=== PATIENT | male | born 1935 | race Caucasian/White ===

== ENCOUNTER 2020-01-26 18:45 | Observation (INO) ==
[2020-01-26] MEDS ORDERED: cefTRIAXone 1,000 MG in Water for inj. (sterile) 10 ML IVP ONE (18:57)
[2020-01-26] MEDS ORDERED: Azithromycin 500 MG in 0.9 % Sodium Chloride 250 ML IVPB ONE (18:57)
[2020-01-26] MEDS ORDERED: Acetaminophen 325 MG TABLET PO ONE (18:57)
[2020-01-26 19:46] LABS: Basophils # 0.1 K/mcL (0.0-0.2); Eosinophils # 0.1 K/mcL (0.0-0.6); Eosinophils % 1.1 %; Hematocrit 54.3 % (37.5-50.1); Immature Granulocytes % 0.3 % (0-4); Lymphocytes # 1.8 K/mcL (0.6-4.6); Lymphocytes % 22.2 %; Mean Corpuscular HGB Conc 33.1 g/dL (31.6-35.5); Mean Corpuscular Hemoglobin 31.6 pg (28.0-33.3); Mean Corpuscular Volume 95.3 fL (83.0-100.0); Mean Platelet Volume 10.3 fL (9.4-12.4); Monocytes # 0.9 K/mcL (0.0-1.3); Monocytes % 10.8 %; Neutrophils # 5.1 K/mcL (1.6-8.9); Platelet Count 207 K/mcL (140-400); Red Cell Distribution Width 13.6 % (11.5-14.5); Segmented Neutrophils % 64.6 %
[2020-01-26 19:52] LABS: Prothrombin Time 11.1 Seconds (9.4-12.1)
[2020-01-26 19:53] LABS: Activated Partial Thrombo Time 31.6 Seconds (26.0-36.0)
[2020-01-26 20:09] LABS: Alanine Aminotransferase 25 Units/L (7-52); Albumin 4.2 g/dL (3.5-5.7); Albumin/Globulin Ratio 1.7 (1.1-2.2); Alkaline Phosphatase 65 Units/L (34-104); Aspartate Amino Transferase 21 Units/L (13-39); BUN/Creatinine Ratio 19 (6-26); Bilirubin,Direct 0.2 mg/dL (0.0-0.2); Bilirubin,Indirect 0.7 mg/dL (0.0-1.0); Bilirubin,Total 0.9 mg/dL (0.3-1.0); Blood Urea Nitrogen 20 mg/dL (8-23); C-Reactive Protein < 5 mg/L (Less than 10); Calcium 9.4 mg/dL (8.6-10.3); Carbon Dioxide 30 mEq/L (23-29); Chloride 102 mEq/L (98-107); Globulin 2.5 g/dL (2.4-3.5); Glucose 91 mg/dL (70-105); Lactate Dehydrogenase 121 Units/L (140-271); Magnesium 2.2 mg/dL (1.6-2.6); Osmolality,Calculated 292 (280-300); Phosphorous 2.3 mg/dL (2.7-4.5); Sodium 140 mEq/L (136-145); Total Protein 6.7 g/dL (6.4-8.9); Troponin I < 0.03 ng/mL (< 0.04); eGFR For African Americans > 60 (> 60); eGFR For Non-African Americans > 60 (> 60)
[2020-01-26 20:28] LABS: Ferritin 104 ng/mL (20-250)
[2020-01-26] MEDS ORDERED: Naloxone 0.4 MG/ML INJ IVP PRN (22:31)
[2020-01-26] MEDS ORDERED: *HR* Promethazine 25 MG/ML VIAL IVP PRN (22:31)
[2020-01-26] MEDS ORDERED: Acetaminophen 325 MG TABLET PO PRN (22:31)
[2020-01-26] MEDS ORDERED: Mag Hydrox/Al Hydrox/Simeth 30 ML UDC PO PRN (22:31)
[2020-01-26] MEDS ORDERED: Benzonatate 100 MG CAPSULE PO PRN (22:40)
[2020-01-26] MEDS ORDERED: Dextrose Gel 15 GM/37.5 ML TUBE PO PRN ×2 (22:42)
[2020-01-26] MEDS ORDERED: *HR* Dextrose 50 % in Water (Syg) 50 ML SYRINGE IVP PRN (22:42)
[2020-01-26] MEDS ORDERED: D5% in Water 1,000 ML IVC PRN (22:42)
[2020-01-27] MEDS: Ipratropium 1 PUFF INHALER IH SCH ×5 (00:34→22:12)
[2020-01-27] MEDS ORDERED: *HR* LORazepam 0.5 MG TABLET PO PRN (01:53)
[2020-01-27] MEDS ORDERED: 0.9 % Sodium Chloride 1,000 ML IVC SCH (02:00)
[2020-01-27] MEDS: Insulin LISPRO 300 UNITS/3 ML VIAL SQ SCH ×5 (02:31→19:30)
[2020-01-27 04:56] LABS: Basophils # 0.1 K/mcL (0.0-0.2); Basophils % 0.8 %; Eosinophils # 0.1 K/mcL (0.0-0.6); Eosinophils % 1.4 %; Hematocrit 49.7 % (37.5-50.1); Hemoglobin 17.1 g/dL (12.9-16.9); Immature Granulocytes % 0.1 % (0-4); Lymphocytes # 1.8 K/mcL (0.6-4.6); Mean Corpuscular HGB Conc 34.4 g/dL (31.6-35.5); Mean Corpuscular Hemoglobin 32.8 pg (28.0-33.3); Mean Corpuscular Volume 95.2 fL (83.0-100.0); Mean Platelet Volume 10.6 fL (9.4-12.4); Monocytes # 0.8 K/mcL (0.0-1.3); Monocytes % 10.4 %; Neutrophils # 4.8 K/mcL (1.6-8.9); Platelet Count 168 K/mcL (140-400); Red Blood Count 5.22 M/mcL (4.19-5.50); Red Cell Distribution Width 13.5 % (11.5-14.5); Segmented Neutrophils % 63.3 %; White Blood Count 7.6 K/mcL (4.3-11.1)
[2020-01-27 05:14] LABS: BUN/Creatinine Ratio 19 (6-26); Blood Urea Nitrogen 17 mg/dL (8-23); Calcium 8.7 mg/dL (8.6-10.3); Carbon Dioxide 25 mEq/L (23-29); Chloride 105 mEq/L (98-107); Glucose 111 mg/dL (70-105); Magnesium 2.1 mg/dL (1.6-2.6); Osmolality,Calculated 292 (280-300); Phosphorous 2.7 mg/dL (2.7-4.5); Potassium 3.4 mEq/L (3.5-5.1); Sodium 140 mEq/L (136-145); eGFR For African Americans > 60 (> 60); eGFR For Non-African Americans > 60 (> 60)
[2020-01-27] MEDS: *HR* Heparin 5,000 UNIT/ML VIAL SQ SCH ×2 (07:03→17:10)
[2020-01-27] MEDS: Doxycycline 100 MG CAPSULE PO SCH ×2 (08:07→19:32)
[2020-01-27 09:35] LABS: Adenovirus Not Detected (Not Detect); Bordetella Pertussis Not Detected (Not Detect); Chlamydophila pneumoniae Not Detected (Not Detect); Coronavirus 229E Not Detected (Not Detect); Coronavirus HKU1 Not Detected (Not Detect); Coronavirus NL63 Not Detected (Not Detect); Coronavirus OC43 Not Detected (Not Detect); Human Metapneumovirus Not Detected (Not Detect); Human Rhinovirus/Enterovirus Not Detected (Not Detect); Influenza A Subtype 2009 H1 Not Detected (Not Detect); Influenza B Not Detected (Not Detect); Mycoplasma pneumoniae Not Detected (Not Detect); Parainfluenza Virus 1 Not Detected (Not Detect); Parainfluenza Virus 2 Not Detected (Not Detect); Parainfluenza Virus 3 Not Detected (Not Detect); Parainfluenza Virus 4 Not Detected (Not Detect); Respiratory Syncytial Virus Not Detected (Not Detect)
[2020-01-27] MEDS: NIFEdipine XL (24 HR) 30 MG TAB.ER.24 PO SCH (19:52)
[2020-01-27] MEDS ORDERED: Ipratropium/Albuterol Neb 3 ML ONE (22:06)
[2020-01-27] MEDS ORDERED: MethylPREDNISolone 40 MG/ML VIAL IVP ONE (22:15)
[2020-01-28] MEDS: Ipratropium/Albuterol Neb 3 ML IH SCH ×2 (04:00→10:30)
[2020-01-28] MEDS: *HR* Heparin 5,000 UNIT/ML VIAL SQ SCH (05:48)
[2020-01-28] MEDS: Doxycycline 100 MG CAPSULE PO SCH (08:30)
[2020-01-28] MEDS: NIFEdipine XL (24 HR) 30 MG TAB.ER.24 PO SCH (08:30)
[2020-01-28] MEDS: Insulin LISPRO 300 UNITS/3 ML VIAL SQ SCH (08:30)
[2020-01-28 08:31] LABS: Estimated Average Glucose 128 mg/dl
[2020-01-28] MEDS ORDERED: MethylPREDNISolone 40 MG/ML VIAL IVP SCH (10:00)
[2020-01-28 10:40] VITALS: BP 136/78
[2020-01-28] MEDS ORDERED: Ipratropium/Albuterol Neb 3 ML IH SCH (22:04)
== END 2020-01-28 13:05 | disposition home or self-care (01) ==
LOC: EMEROOARM 18:45 → 2NENU 18:45 → SUATTDRO 21:58 → 2NENU 23:10 → 3BNU 01-27 20:44
PROVIDERS: ADMIT Family Medicine; ATTEND Internal Medicine

== ENCOUNTER 2020-03-02 19:43 | Observation (INO) ==
[2020-03-02] MEDS ORDERED: Azithromycin 500 MG in 0.9 % Sodium Chloride 250 ML IVPB ONE (20:01)
[2020-03-02] MEDS ORDERED: Ipratropium/Albuterol Neb 3 ML IH ONE (20:01)
[2020-03-02] MEDS ORDERED: methylPREDNISolone 125 MG/2 ML VIAL IVP ONE (20:02)
[2020-03-02] MEDS ORDERED: 0.9 % Sodium Chloride 1,000 ML IVC ONE ×2 (20:02→21:37)
[2020-03-02 20:25] LABS: Basophils # 0.1 K/mcL (0.0-0.2); Eosinophils # 0.2 K/mcL (0.0-0.6); Eosinophils % 2.2 %; Hematocrit 54.2 % (37.5-50.1); Hemoglobin 18.1 g/dL (12.9-16.9); Immature Granulocytes % 0.5 % (0-4); Lymphocytes # 2.3 K/mcL (0.6-4.6); Lymphocytes % 28.1 %; Mean Corpuscular HGB Conc 33.4 g/dL (31.6-35.5); Mean Corpuscular Hemoglobin 31.3 pg (28.0-33.3); Mean Corpuscular Volume 93.8 fL (83.0-100.0); Mean Platelet Volume 10.1 fL (9.4-12.4); Monocytes # 0.9 K/mcL (0.0-1.3); Monocytes % 10.6 %; Neutrophils # 4.6 K/mcL (1.6-8.9); Platelet Count 306 K/mcL (140-400); Red Blood Count 5.78 M/mcL (4.19-5.50); Red Cell Distribution Width 13.2 % (11.5-14.5); Segmented Neutrophils % 57.6 %
[2020-03-02] MEDS ORDERED: Ipratropium 1 PUFF INHALER IH PRN (20:28)
[2020-03-02 20:41] LABS: Prothrombin Time 11.4 Seconds (9.4-12.1)
[2020-03-02 20:42] LABS: Activated Partial Thrombo Time 32.8 Seconds (26.0-36.0)
[2020-03-02 20:58] LABS: Alanine Aminotransferase 25 Units/L (7-52); Albumin 4.5 g/dL (3.5-5.7); Albumin/Globulin Ratio 1.5 (1.1-2.2); Alkaline Phosphatase 77 Units/L (34-104); Aspartate Amino Transferase 23 Units/L (13-39); BUN/Creatinine Ratio 25 (6-26); Bilirubin,Direct 0.2 mg/dL (0.0-0.2); Bilirubin,Indirect 0.5 mg/dL (0.0-1.0); Bilirubin,Total 0.7 mg/dL (0.3-1.0); Blood Urea Nitrogen 29 mg/dL (8-23); C-Reactive Protein < 5 mg/L (Less than 10); Carbon Dioxide 28 mEq/L (23-29); Chloride 102 mEq/L (98-107); Globulin 3.1 g/dL (2.4-3.5); Glucose 150 mg/dL (70-105); Lactate Dehydrogenase 144 Units/L (140-271); Magnesium 2.1 mg/dL (1.6-2.6); Osmolality,Calculated 293 (280-300); Phosphorous 2.8 mg/dL (2.7-4.5); Potassium 3.4 mEq/L (3.5-5.1); Sodium 137 mEq/L (136-145); Total Protein 7.6 g/dL (6.4-8.9); Troponin I < 0.03 ng/mL (< 0.04); eGFR For African Americans > 60 (> 60); eGFR For Non-African Americans 59 (> 60)
[2020-03-02 21:16] LABS: Ferritin 210 ng/mL (20-250)
[2020-03-02 22:55] LABS: Bilirubin,Urine Negative (Negative); Blood,Urine Negative (Negative); Clarity,Urine Clear (Clear); Color,Urine Yellow (Yellow); Glucose,Urine (UA) Normal (Normal); Ketones,Urine Negative (Negative); Leukocyte Esterase,Urine Negative (Negative); Nitrite,Urine Negative (Negative); Protein,Urine Negative (Neg-Trace); Specific Gravity,Urine 1.017 (1.010-1.025); Urobilinogen,Urine Normal (Normal)
[2020-03-02] MEDS: Ipratropium 1 PUFF INHALER IH SCH (23:57)
[2020-03-03] MEDS ORDERED: D5% in Water 1,000 ML IVC PRN (01:10)
[2020-03-03] MEDS ORDERED: *HR* Dextrose 50 % in Water (Syg) 50 ML SYRINGE IVP PRN (01:10)
[2020-03-03] MEDS ORDERED: Dextrose Gel 15 GM/37.5 ML TUBE PO PRN ×2 (01:10)
[2020-03-03] MEDS: Insulin LISPRO 300 UNITS/3 ML VIAL SQ SCH ×4 (01:29→16:44)
[2020-03-03] MEDS: *HR* Acetylcysteine 20% 600 MG/3 ML ORAL SYRINGE PO SCH ×2 (01:52→07:36)
[2020-03-03] MEDS: Ipratropium 1 PUFF INHALER IH SCH ×5 (03:19→20:45)
[2020-03-03] MEDS: *HR* Heparin 5,000 UNIT/ML VIAL SQ SCH ×2 (05:17→16:32)
[2020-03-03 05:40] LABS: Basophils % 0.5 %; Hematocrit 49.7 % (37.5-50.1); Immature Granulocytes % 0.5 % (0-4); Lymphocytes # 0.7 K/mcL (0.6-4.6); Lymphocytes % 12.5 %; Mean Corpuscular HGB Conc 32.8 g/dL (31.6-35.5); Mean Corpuscular Hemoglobin 30.9 pg (28.0-33.3); Mean Corpuscular Volume 94.1 fL (83.0-100.0); Monocytes # 0.1 K/mcL (0.0-1.3); Monocytes % 1.2 %; Neutrophils # 4.8 K/mcL (1.6-8.9); Platelet Count 270 K/mcL (140-400); Red Blood Count 5.28 M/mcL (4.19-5.50); Red Cell Distribution Width 13.1 % (11.5-14.5); Segmented Neutrophils % 85.3 %; White Blood Count 5.6 K/mcL (4.3-11.1)
[2020-03-03 05:41] LABS: Hemoglobin 16.3 g/dL (12.9-16.9)
[2020-03-03 05:59] LABS: Alanine Aminotransferase 21 Units/L (7-52); Albumin 4.1 g/dL (3.5-5.7); Albumin/Globulin Ratio 1.6 (1.1-2.2); Alkaline Phosphatase 65 Units/L (34-104); Aspartate Amino Transferase 19 Units/L (13-39); BUN/Creatinine Ratio 24 (6-26); Bilirubin,Total 0.8 mg/dL (0.3-1.0); Blood Urea Nitrogen 24 mg/dL (8-23); Calcium 8.8 mg/dL (8.6-10.3); Carbon Dioxide 26 mEq/L (23-29); Chloride 105 mEq/L (98-107); Globulin 2.6 g/dL (2.4-3.5); Glucose 188 mg/dL (70-105); Osmolality,Calculated 295 (280-300); Sodium 138 mEq/L (136-145); Total Protein 6.7 g/dL (6.4-8.9); eGFR For African Americans > 60 (> 60); eGFR For Non-African Americans > 60 (> 60)
[2020-03-03] MEDS: Azithromycin 500 MG in 0.9 % Sodium Chloride 250 ML IVPB SCH (07:36)
[2020-03-03] MEDS: MethylPREDNISolone 40 MG/ML VIAL IVP SCH ×3 (09:23→23:54)
[2020-03-03] MEDS ORDERED: Isovue-370 500 ML BOTTLE IVP ONE (11:04)
[2020-03-03] MEDS: Budesonide/Formoterol 160/4.5 1 PUFF INH IH SCH ×2 (11:09→20:45)
[2020-03-03] MEDS: Loratadine 10 MG TABLET PO SCH (11:29)
[2020-03-03] MEDS: Ipratropium/Albuterol Neb 3 ML IH SCH ×2 (21:57→23:33)
[2020-03-03] MEDS: NIFEdipine XL (24 HR) 30 MG TAB.ER.24 PO SCH (23:54)
[2020-03-04] MEDS: Ipratropium/Albuterol Neb 3 ML IH SCH ×3 (03:17→11:17)
[2020-03-04] MEDS: *HR* Heparin 5,000 UNIT/ML VIAL SQ SCH (05:48)
[2020-03-04] MEDS: Insulin LISPRO 300 UNITS/3 ML VIAL SQ SCH (08:58)
[2020-03-04] MEDS ORDERED: Aspirin Enteric Coated 325 MG Tablet PO SCH (09:00)
[2020-03-04] MEDS: Azithromycin 500 MG in 0.9 % Sodium Chloride 250 ML IVPB SCH (09:03)
[2020-03-04] MEDS: MethylPREDNISolone 40 MG/ML VIAL IVP SCH (09:03)
[2020-03-04] MEDS: NIFEdipine XL (24 HR) 30 MG TAB.ER.24 PO SCH (09:03)
[2020-03-04] MEDS: Loratadine 10 MG TABLET PO SCH (09:03)
[2020-03-04 10:30] VITALS: BP 100/59
== END 2020-03-04 13:59 | disposition home or self-care (01) ==
LOC: 2NENU 19:43 → EMEROOARM 19:43 → 2NENU 22:25 → 3BNU 03-03 20:09
PROVIDERS: ADMIT Internal Medicine; ATTEND Internal Medicine

== ENCOUNTER 2021-03-09 09:20 | Observation (INO) ==
[2021-03-09] MEDS ORDERED: Acetaminophen 325 MG TABLET PO ONE (09:22)
[2021-03-09] MEDS ORDERED: Ondansetron 4 MG/2 ML VIAL IVP ONE (09:22)
[2021-03-09] MEDS ORDERED: 0.9 % Sodium Chloride 500 ML IVC ONE (09:30)
[2021-03-09] MEDS ORDERED: 0.9 % Sodium Chloride 500 ML ONE (09:33)
[2021-03-09 09:56] LABS: Basophils # 0.1 K/mcL (0.0-0.2); Basophils % 1.1 %; Eosinophils # 0.1 K/mcL (0.0-0.6); Eosinophils % 1.2 %; Hematocrit 46.9 % (37.5-50.1); Immature Granulocytes % 0.3 % (0-4); Lymphocytes # 0.7 K/mcL (0.6-4.6); Lymphocytes % 7.7 %; Mean Corpuscular HGB Conc 34.1 g/dL (31.6-35.5); Mean Corpuscular Hemoglobin 31.2 pg (28.0-33.3); Mean Corpuscular Volume 91.4 fL (83.0-100.0); Mean Platelet Volume 10.2 fL (9.4-12.4); Monocytes # 0.9 K/mcL (0.0-1.3); Monocytes % 9.4 %; Neutrophils # 7.3 K/mcL (1.6-8.9); Platelet Count 168 K/mcL (140-400); Red Blood Count 5.13 M/mcL (4.19-5.50); Segmented Neutrophils % 80.3 %; White Blood Count 9.1 K/mcL (4.3-11.1)
[2021-03-09] MEDS ORDERED: cefTRIAXone 1,000 MG in 0.9 % Sodium Chloride Mini Bag 100 ML IVPB ONE (10:11)
[2021-03-09] MEDS ORDERED: Azithromycin 500 MG in 0.9 % Sodium Chloride 250 ML IVPB ONE (10:11)
[2021-03-09 10:18] LABS: Alanine Aminotransferase 31 Units/L (7-52); Albumin 3.7 g/dL (3.5-5.7); Albumin/Globulin Ratio 1.4 (1.1-2.2); Alkaline Phosphatase 59 Units/L (34-104); Aspartate Amino Transferase 25 Units/L (13-39); BUN/Creatinine Ratio 16 (6-26); Blood Urea Nitrogen 19 mg/dL (8-23); Calcium 8.7 mg/dL (8.6-10.3); Carbon Dioxide 22 mEq/L (23-29); Chloride 98 mEq/L (98-107); Globulin 2.6 g/dL (2.4-3.5); Glucose 142 mg/dL (70-105); Osmolality,Calculated 271 (280-300); Potassium 3.9 mEq/L (3.5-5.1); Sodium 128 mEq/L (136-145); Total Protein 6.3 g/dL (6.4-8.9); Troponin I 0.03 ng/mL (< 0.04); eGFR For African Americans > 60 (> 60); eGFR For Non-African Americans 57 (> 60)
[2021-03-09] MEDS ORDERED: methylPREDNISolone 125 MG/2 ML VIAL IVP ONE (10:35)
[2021-03-09] MEDS ORDERED: Ipratropium/Albuterol Neb 3 ML IH ONE (10:35)
[2021-03-09] MEDS ORDERED: cefTRIAXone 1,000 MG in Water for inj. (sterile) 10 ML IVP ONE (10:37)
[2021-03-09 10:59] LABS: Adenovirus Not Detected (Not Detect); Coronavirus 229E Not Detected (Not Detect); Coronavirus HKU1 Not Detected (Not Detect); Coronavirus NL63 Not Detected (Not Detect); Coronavirus OC43 Not Detected (Not Detect); Human Metapneumovirus Not Detected (Not Detect); Human Rhinovirus/Enterovirus Not Detected (Not Detect); Influenza A Subtype 2009 H1 Not Detected (Not Detect); Influenza B Not Detected (Not Detect); Parainfluenza Virus 1 Not Detected (Not Detect); Parainfluenza Virus 2 Not Detected (Not Detect); SARS-CoV-2 Not Detected (Not Detect)
[2021-03-09 11:00] LABS: Bordetella Pertussis Not Detected (Not Detect); Chlamydophila pneumoniae Not Detected (Not Detect); Mycoplasma pneumoniae Not Detected (Not Detect); Parainfluenza Virus 3 Not Detected (Not Detect); Parainfluenza Virus 4 Not Detected (Not Detect); Respiratory Syncytial Virus Not Detected (Not Detect)
[2021-03-09] MEDS ORDERED: Naloxone 0.4 MG/ML INJ IVP PRN (11:06)
[2021-03-09] MEDS: *HR* Heparin 5,000 UNIT/ML VIAL SQ SCH ×2 (14:52→20:00)
[2021-03-09 16:32] LABS: Bilirubin,Urine Negative (Negative); Blood,Urine Negative (Negative); Clarity,Urine Clear (Clear); Color,Urine Light-Yellow (Yellow); Glucose,Urine (UA) Normal (Normal); Ketones,Urine 10 mg/dL (Negative); Leukocyte Esterase,Urine Negative (Negative); Nitrite,Urine Negative (Negative); Protein,Urine Negative (Neg-Trace); Specific Gravity,Urine 1.009 (1.010-1.025); Urobilinogen,Urine Normal (Normal)
[2021-03-09] MEDS ORDERED: 0.9 % Sodium Chloride 1,000 ML IVC SCH (18:00)
[2021-03-09] MEDS: Artificial Tears SOLN 15 ML BOTTLE BOTH EYES SCH (21:17)
[2021-03-10] MEDS: *HR* Heparin 5,000 UNIT/ML VIAL SQ SCH ×3 (04:08→21:40)
[2021-03-10 05:14] LABS: Basophils % 0.2 %; Hematocrit 48.3 % (37.5-50.1); Hemoglobin 16.5 g/dL (12.9-16.9); Immature Granulocytes % 0.3 % (0-4); Lymphocytes # 0.7 K/mcL (0.6-4.6); Lymphocytes % 11.2 %; Mean Corpuscular HGB Conc 34.2 g/dL (31.6-35.5); Mean Corpuscular Hemoglobin 31.3 pg (28.0-33.3); Mean Corpuscular Volume 91.7 fL (83.0-100.0); Mean Platelet Volume 10.3 fL (9.4-12.4); Monocytes # 0.2 K/mcL (0.0-1.3); Monocytes % 3.5 %; Neutrophils # 5.3 K/mcL (1.6-8.9); Platelet Count 166 K/mcL (140-400); Red Blood Count 5.27 M/mcL (4.19-5.50); Red Cell Distribution Width 13.2 % (11.5-14.5); Segmented Neutrophils % 84.8 %; White Blood Count 6.3 K/mcL (4.3-11.1)
[2021-03-10 05:35] LABS: BUN/Creatinine Ratio 18 (6-26); Blood Urea Nitrogen 20 mg/dL (8-23); Calcium 8.7 mg/dL (8.6-10.3); Carbon Dioxide 22 mEq/L (23-29); Chloride 107 mEq/L (98-107); Glucose 162 mg/dL (70-105); Osmolality,Calculated 286 (280-300); Potassium 4.7 mEq/L (3.5-5.1); Sodium 135 mEq/L (136-145); eGFR For African Americans > 60 (> 60); eGFR For Non-African Americans > 60 (> 60)
[2021-03-10 05:42] LABS: Estimated Average Glucose 128 mg/dl; Hemoglobin A1C 6.1 %
[2021-03-10] MEDS: Artificial Tears SOLN 15 ML BOTTLE BOTH EYES SCH ×4 (08:22→21:39)
[2021-03-10] MEDS: Pyridoxine (B-6) 50 MG TABLET PO SCH (11:37)
[2021-03-10] MEDS: Cholecalciferol (D-3) 1,000 UNIT (25MCG) TABLET PO SCH (11:37)
[2021-03-10] MEDS: predniSONE 20 MG TABLET PO SCH (11:37)
[2021-03-10] MEDS: Azithromycin 500 MG in 0.9 % Sodium Chloride 250 ML IVPB SCH (11:38)
[2021-03-10] MEDS: amLODIPine 5 MG TABLET PO SCH (11:38)
[2021-03-10] MEDS: cefTRIAXone 2,000 MG in Water for inj. (sterile) 20 ML IVP SCH (11:38)
[2021-03-10] MEDS ORDERED: Ipratropium/Albuterol Neb 3 ML IH PRN (13:56)
[2021-03-11] MEDS: *HR* Heparin 5,000 UNIT/ML VIAL SQ SCH ×2 (05:27→05:42)
[2021-03-11 06:10] LABS: Basophils % 0.3 %; Eosinophils % 0.1 %; Hematocrit 47.2 % (37.5-50.1); Hemoglobin 15.6 g/dL (12.9-16.9); Immature Granulocytes % 0.6 % (0-4); Lymphocytes # 1.1 K/mcL (0.6-4.6); Lymphocytes % 8.8 %; Mean Corpuscular HGB Conc 33.1 g/dL (31.6-35.5); Mean Corpuscular Hemoglobin 30.8 pg (28.0-33.3); Mean Corpuscular Volume 93.1 fL (83.0-100.0); Mean Platelet Volume 10.4 fL (9.4-12.4); Monocytes # 0.6 K/mcL (0.0-1.3); Monocytes % 4.5 %; Neutrophils # 10.9 K/mcL (1.6-8.9); Platelet Count 222 K/mcL (140-400); Red Blood Count 5.07 M/mcL (4.19-5.50); Red Cell Distribution Width 13.4 % (11.5-14.5); Segmented Neutrophils % 85.7 %
[2021-03-11 06:15] LABS: White Blood Count 12.7 K/mcL (4.3-11.1)
[2021-03-11 06:40] LABS: BUN/Creatinine Ratio 24 (6-26); Blood Urea Nitrogen 25 mg/dL (8-23); Calcium 8.8 mg/dL (8.6-10.3); Carbon Dioxide 25 mEq/L (23-29); Chloride 108 mEq/L (98-107); Glucose 138 mg/dL (70-105); Osmolality,Calculated 295 (280-300); Potassium 4.6 mEq/L (3.5-5.1); Sodium 139 mEq/L (136-145); eGFR For African Americans > 60 (> 60); eGFR For Non-African Americans > 60 (> 60)
[2021-03-11] MEDS: cefTRIAXone 2,000 MG in Water for inj. (sterile) 20 ML IVP SCH (10:54)
[2021-03-11] MEDS: Azithromycin 500 MG in 0.9 % Sodium Chloride 250 ML IVPB SCH (10:55)
[2021-03-11] MEDS: predniSONE 20 MG TABLET PO SCH (10:56)
[2021-03-11] MEDS: amLODIPine 5 MG TABLET PO SCH (10:56)
[2021-03-11] MEDS: Pyridoxine (B-6) 50 MG TABLET PO SCH (10:56)
[2021-03-11] MEDS: Cholecalciferol (D-3) 1,000 UNIT (25MCG) TABLET PO SCH (10:56)
[2021-03-11] MEDS: Artificial Tears SOLN 15 ML BOTTLE BOTH EYES SCH (10:57)
[2021-03-11 12:29] VITALS: BP 147/79
== END 2021-03-11 13:16 | disposition home or self-care (01) ==
LOC: CDU 09:20 → EMEROOARM 09:20 → SUATTDRO 12:03 → CDU 12:32 → 3BNU 17:19
PROVIDERS: ADMIT Internal Medicine; ATTEND Internal Medicine

== ENCOUNTER 2021-06-30 10:27 | Inpatient (IN) ==
[2021-06-30 11:44] LABS: Basophils # 0.1 K/mcL (0.0-0.2); Basophils % 0.9 %; Eosinophils # 0.3 K/mcL (0.0-0.6); Eosinophils % 4.4 %; Hematocrit 51.8 % (37.5-50.1); Hemoglobin 17.4 g/dL (12.9-16.9); Immature Granulocytes % 0.1 % (0-4); Lymphocytes % 13.5 %; Mean Corpuscular HGB Conc 33.6 g/dL (31.6-35.5); Mean Corpuscular Hemoglobin 31.4 pg (28.0-33.3); Mean Corpuscular Volume 93.5 fL (83.0-100.0); Mean Platelet Volume 10.4 fL (9.4-12.4); Monocytes # 0.7 K/mcL (0.0-1.3); Monocytes % 8.8 %; Neutrophils # 5.5 K/mcL (1.6-8.9); Platelet Count 235 K/mcL (140-400); Red Blood Count 5.54 M/mcL (4.19-5.50); Red Cell Distribution Width 12.6 % (11.5-14.5); Segmented Neutrophils % 72.3 %; White Blood Count 7.7 K/mcL (4.3-11.1)
[2021-06-30 12:54] LABS: Acetaminophen < 10 mcg/mL (10-20); BUN/Creatinine Ratio 21 (6-26); Blood Urea Nitrogen 42 mg/dL (8-23); Calcium 9.4 mg/dL (8.6-10.3); Carbon Dioxide 25 mEq/L (23-29); Chloride 97 mEq/L (98-107); Ethanol < 10 mg/dL (Less than 10); Glucose 119 mg/dL (70-105); Osmolality,Calculated 292 (280-300); Salicylate < 2.5 mg/dL (15.0-30.0); Sodium 135 mEq/L (136-145); eGFR For African Americans 38 (> 60); eGFR For Non-African Americans 31 (> 60)
[2021-06-30 13:09] LABS: Troponin I 0.03 ng/mL (< 0.04)
[2021-06-30 15:51] LABS: Bacteria,Urine Few per hpf (None-Few); Bilirubin,Urine Negative (Negative); Blood,Urine Negative (Negative); Clarity,Urine Clear (Clear); Color,Urine Yellow (Yellow); Glucose,Urine (UA) Normal (Normal); Granular Casts,Urine Few per lpf (None Seen); Hyaline Casts,Urine Few per lpf (None Seen); Ketones,Urine 10 mg/dL (Negative); Leukocyte Esterase,Urine Trace (Negative); Mucus,Urine Few per lpf (None-Few); Nitrite,Urine Negative (Negative); PH,Urine 5.5 pH Units (5.0-8.0); Protein,Urine Trace mg/dL (Neg-Trace); RBC,Urine 0-3 per hpf (0-3); Renal Epithelial Cells,Urine Few per hpf (None-Few); Specific Gravity,Urine 1.018 (1.010-1.025); Transitional Epi Cells,Urine Few per hpf (None-Few); Urobilinogen,Urine Normal (Normal)
[2021-06-30 15:57] LABS: Amphetamine Screen,Urine Negative ng/mL (Cutoff=1000); Barbiturate Screen,Urine Negative ng/mL (Cutoff=200); Benzodiazepines Screen,Urine Negative ng/mL (Cutoff=200); Cannabinoid Screen,Urine Negative ng/mL (Cutoff = 50); Cocaine Screen,Urine Negative ng/mL (Cutoff= 300); Opiate Screen,Urine Negative ng/mL (Cutoff=300); Phencyclidine Screen,Urine Negative ng/mL (Cutoff=25)
[2021-06-30] MEDS ORDERED: Naloxone 0.4 MG/ML INJ IVP PRN (17:04)
[2021-06-30] MEDS: 0.9 % Sodium Chloride 1,000 ML IVC SCH (20:45)
[2021-07-01 05:34] LABS: Mean Corpuscular Hemoglobin 31.8 pg (28.0-33.3); Mean Corpuscular Volume 93.4 fL (83.0-100.0); Mean Platelet Volume 10.5 fL (9.4-12.4); Platelet Count 247 K/mcL (140-400); Red Blood Count 5.03 M/mcL (4.19-5.50); Red Cell Distribution Width 12.4 % (11.5-14.5); White Blood Count 8.4 K/mcL (4.3-11.1)
[2021-07-01 05:54] LABS: Calcium 8.8 mg/dL (8.6-10.3); Potassium 4.2 mEq/L (3.5-5.1)
[2021-07-01] MEDS: *HR* Enoxaparin 40 MG/0.4 ML SYRINGE SQ SCH (05:57)
[2021-07-01] MEDS ORDERED: HydrOXYzine 100 MG/2 ML VIAL IM ONE (07:34)
[2021-07-01] MEDS ORDERED: Ipratropium/Albuterol Neb 3 ML IH PRN (11:31)
[2021-07-01] MEDS: 0.9 % Sodium Chloride 1,000 ML IVC SCH (20:09)
[2021-07-02 04:30] LABS: Hematocrit 47.4 % (37.5-50.1); Hemoglobin 15.8 g/dL (12.9-16.9); Mean Corpuscular HGB Conc 33.3 g/dL (31.6-35.5); Mean Corpuscular Hemoglobin 31.3 pg (28.0-33.3); Mean Corpuscular Volume 93.9 fL (83.0-100.0); Mean Platelet Volume 10.3 fL (9.4-12.4); Platelet Count 261 K/mcL (140-400); Red Blood Count 5.05 M/mcL (4.19-5.50); Red Cell Distribution Width 12.4 % (11.5-14.5); White Blood Count 8.8 K/mcL (4.3-11.1)
[2021-07-02 04:53] LABS: Calcium 8.6 mg/dL (8.6-10.3); Potassium 4.1 mEq/L (3.5-5.1)
[2021-07-02] MEDS: *HR* Enoxaparin 40 MG/0.4 ML SYRINGE SQ SCH (05:27)
[2021-07-02] MEDS: Cholecalciferol (D-3) 1,000 UNIT (25MCG) TABLET PO SCH (08:40)
[2021-07-02] MEDS: amLODIPine 5 MG TABLET PO SCH (08:41)
[2021-07-02] MEDS: Pyridoxine (B-6) 50 MG TABLET PO SCH (08:41)
[2021-07-02] MEDS ORDERED: HydrOXYzine 100 MG/2 ML VIAL IM ONE (11:17)
[2021-07-02] MEDS: QUEtiapine Fumarate 25 MG TABLET PO SCH ×2 (11:26→20:30)
[2021-07-03 01:40] LABS: Hematocrit 45.2 % (37.5-50.1); Hemoglobin 15.2 g/dL (12.9-16.9); Mean Corpuscular HGB Conc 33.6 g/dL (31.6-35.5); Mean Corpuscular Hemoglobin 31.7 pg (28.0-33.3); Mean Corpuscular Volume 94.4 fL (83.0-100.0); Mean Platelet Volume 10.4 fL (9.4-12.4); Platelet Count 256 K/mcL (140-400); Red Blood Count 4.79 M/mcL (4.19-5.50); Red Cell Distribution Width 12.3 % (11.5-14.5); White Blood Count 9.8 K/mcL (4.3-11.1)
[2021-07-03 02:11] LABS: Calcium 8.5 mg/dL (8.6-10.3); Potassium 3.9 mEq/L (3.5-5.1)
[2021-07-03] MEDS: *HR* Enoxaparin 40 MG/0.4 ML SYRINGE SQ SCH (05:39)
[2021-07-03] MEDS: QUEtiapine Fumarate 25 MG TABLET PO SCH ×2 (08:47→21:42)
[2021-07-03] MEDS: Pyridoxine (B-6) 50 MG TABLET PO SCH (08:48)
[2021-07-03] MEDS: Cholecalciferol (D-3) 1,000 UNIT (25MCG) TABLET PO SCH (08:48)
[2021-07-03] MEDS: amLODIPine 5 MG TABLET PO SCH (08:51)
[2021-07-03] MEDS: GuaiFENesin/Dextromethorphan TABLET PO SCH ×2 (10:10→21:41)
[2021-07-03] MEDS: Loratadine 10 MG TABLET PO SCH (21:42)
[2021-07-04] MEDS: *HR* Enoxaparin 30 MG/0.3 ML SYRINGE SQ SCH (06:59)
[2021-07-04 07:17] LABS: Hematocrit 47.2 % (37.5-50.1); Hemoglobin 15.6 g/dL (12.9-16.9); Mean Corpuscular HGB Conc 33.1 g/dL (31.6-35.5); Mean Corpuscular Hemoglobin 31.3 pg (28.0-33.3); Mean Corpuscular Volume 94.6 fL (83.0-100.0); Mean Platelet Volume 10.1 fL (9.4-12.4); Platelet Count 263 K/mcL (140-400); Red Blood Count 4.99 M/mcL (4.19-5.50); Red Cell Distribution Width 12.6 % (11.5-14.5); White Blood Count 10.3 K/mcL (4.3-11.1)
[2021-07-04 07:38] LABS: Calcium 9.5 mg/dL (8.6-10.3); Potassium 4.4 mEq/L (3.5-5.1)
[2021-07-04] MEDS: Pyridoxine (B-6) 50 MG TABLET PO SCH (08:50)
[2021-07-04] MEDS: amLODIPine 5 MG TABLET PO SCH (08:50)
[2021-07-04] MEDS: QUEtiapine Fumarate 25 MG TABLET PO SCH ×2 (08:51→21:27)
[2021-07-04] MEDS: Cholecalciferol (D-3) 1,000 UNIT (25MCG) TABLET PO SCH (08:51)
[2021-07-04] MEDS: GuaiFENesin/Dextromethorphan TABLET PO SCH ×2 (08:51→21:27)
[2021-07-04] MEDS: Loratadine 10 MG TABLET PO SCH (21:27)
[2021-07-05 01:27] LABS: Hematocrit 43.1 % (37.5-50.1); Hemoglobin 14.6 g/dL (12.9-16.9); Mean Corpuscular HGB Conc 33.9 g/dL (31.6-35.5); Mean Corpuscular Hemoglobin 32.3 pg (28.0-33.3); Mean Corpuscular Volume 95.4 fL (83.0-100.0); Mean Platelet Volume 10.2 fL (9.4-12.4); Platelet Count 260 K/mcL (140-400); Red Blood Count 4.52 M/mcL (4.19-5.50); Red Cell Distribution Width 12.6 % (11.5-14.5); White Blood Count 9.3 K/mcL (4.3-11.1)
[2021-07-05 01:45] LABS: Calcium 9.1 mg/dL (8.6-10.3); Potassium 4.5 mEq/L (3.5-5.1)
[2021-07-05] MEDS: *HR* Enoxaparin 30 MG/0.3 ML SYRINGE SQ SCH (06:13)
[2021-07-05] MEDS: Pyridoxine (B-6) 50 MG TABLET PO SCH (08:30)
[2021-07-05] MEDS: Cholecalciferol (D-3) 1,000 UNIT (25MCG) TABLET PO SCH (08:30)
[2021-07-05] MEDS: GuaiFENesin/Dextromethorphan TABLET PO SCH ×2 (08:30→20:43)
[2021-07-05] MEDS: amLODIPine 5 MG TABLET PO SCH (08:30)
[2021-07-05] MEDS: QUEtiapine Fumarate 25 MG TABLET PO SCH ×2 (08:30→20:43)
[2021-07-05] MEDS: Loratadine 10 MG TABLET PO SCH (20:43)
[2021-07-06] MEDS: *HR* Enoxaparin 30 MG/0.3 ML SYRINGE SQ SCH (06:11)
[2021-07-06] MEDS: Pyridoxine (B-6) 50 MG TABLET PO SCH (08:18)
[2021-07-06] MEDS: amLODIPine 5 MG TABLET PO SCH (08:18)
[2021-07-06] MEDS: GuaiFENesin/Dextromethorphan TABLET PO SCH ×2 (08:18→20:12)
[2021-07-06] MEDS: QUEtiapine Fumarate 25 MG TABLET PO SCH ×2 (08:18→20:12)
[2021-07-06] MEDS: Cholecalciferol (D-3) 1,000 UNIT (25MCG) TABLET PO SCH (08:18)
[2021-07-06] MEDS: Loratadine 10 MG TABLET PO SCH (20:13)
[2021-07-07 05:23] LABS: Basophils # 0.1 K/mcL (0.0-0.2); Basophils % 1.1 %; Eosinophils # 0.4 K/mcL (0.0-0.6); Eosinophils % 4.8 %; Hematocrit 46.9 % (37.5-50.1); Hemoglobin 15.5 g/dL (12.9-16.9); Immature Granulocytes % 0.8 % (0-4); Lymphocytes # 1.3 K/mcL (0.6-4.6); Lymphocytes % 14.9 %; Mean Corpuscular Volume 93.8 fL (83.0-100.0); Mean Platelet Volume 9.5 fL (9.4-12.4); Monocytes # 0.8 K/mcL (0.0-1.3); Monocytes % 9.4 %; Neutrophils # 5.8 K/mcL (1.6-8.9); Platelet Count 256 K/mcL (140-400); Red Cell Distribution Width 12.7 % (11.5-14.5); White Blood Count 8.4 K/mcL (4.3-11.1)
[2021-07-07 05:43] LABS: Calcium 9.5 mg/dL (8.6-10.3); Magnesium 1.8 mg/dL (1.6-2.6); Potassium 4.1 mEq/L (3.5-5.1)
[2021-07-07] MEDS: *HR* Enoxaparin 30 MG/0.3 ML SYRINGE SQ SCH (05:49)
[2021-07-07] MEDS: GuaiFENesin/Dextromethorphan TABLET PO SCH ×2 (09:32→20:24)
[2021-07-07] MEDS: Pyridoxine (B-6) 50 MG TABLET PO SCH (09:32)
[2021-07-07] MEDS: QUEtiapine Fumarate 25 MG TABLET PO SCH ×2 (09:32→20:24)
[2021-07-07] MEDS: Cholecalciferol (D-3) 1,000 UNIT (25MCG) TABLET PO SCH (09:32)
[2021-07-07] MEDS: amLODIPine 5 MG TABLET PO SCH (09:32)
[2021-07-07] MEDS: Loratadine 10 MG TABLET PO SCH (20:24)
[2021-07-08] MEDS: *HR* Enoxaparin 30 MG/0.3 ML SYRINGE SQ SCH (05:19)
[2021-07-08] MEDS: GuaiFENesin/Dextromethorphan TABLET PO SCH (07:39)
[2021-07-08] MEDS: QUEtiapine Fumarate 25 MG TABLET PO SCH ×2 (07:39→20:03)
[2021-07-08] MEDS: Cholecalciferol (D-3) 1,000 UNIT (25MCG) TABLET PO SCH (07:39)
[2021-07-08] MEDS: Pyridoxine (B-6) 50 MG TABLET PO SCH (07:40)
[2021-07-08] MEDS: amLODIPine 5 MG TABLET PO SCH (07:40)
[2021-07-08 08:26] LABS: Basophils # 0.1 K/mcL (0.0-0.2); Basophils % 0.9 %; Eosinophils % 3.8 %; Immature Granulocytes % 1.1 % (0-4); Lymphocytes # 1.2 K/mcL (0.6-4.6); Lymphocytes % 13.1 %; Mean Corpuscular HGB Conc 33.5 g/dL (31.6-35.5); Mean Corpuscular Hemoglobin 32.1 pg (28.0-33.3); Mean Corpuscular Volume 95.9 fL (83.0-100.0); Mean Platelet Volume 10.6 fL (9.4-12.4); Monocytes # 0.8 K/mcL (0.0-1.3); Monocytes % 8.6 %; Neutrophils # 6.6 K/mcL (1.6-8.9); Platelet Count 218 K/mcL (140-400); Red Blood Count 5.32 M/mcL (4.19-5.50); Red Cell Distribution Width 12.7 % (11.5-14.5); Segmented Neutrophils % 72.5 %; White Blood Count 9.1 K/mcL (4.3-11.1)
[2021-07-08 08:27] LABS: Eosinophils # 0.4 K/mcL (0.0-0.6); Hemoglobin 17.1 g/dL (12.9-16.9)
[2021-07-08 08:38] LABS: Calcium 9.7 mg/dL (8.6-10.3); Magnesium 1.9 mg/dL (1.6-2.6); Platelet Estimate Normal (Normal)
[2021-07-08] MEDS ORDERED: Albuterol 2.5 MG/3 ML NEBULIZER IH PRN (11:40)
[2021-07-08] MEDS ORDERED: Ringers Solution, Lactated 1,000 ML IVC SCH (13:15)
[2021-07-08] MEDS ORDERED: *HR* LORazepam 2 MG/ML VIAL IVP ONE (19:53)
[2021-07-08] MEDS: Loratadine 10 MG TABLET PO SCH (20:03)
[2021-07-09] MEDS ORDERED: *HR* LORazepam 2 MG/ML VIAL IVP ONE (02:10)
[2021-07-09] MEDS ORDERED: Tiotropium 10 INH DOSE IH ONE (03:35)
[2021-07-09] MEDS: *HR* Enoxaparin 40 MG/0.4 ML SYRINGE SQ SCH (05:10)
[2021-07-09 05:52] LABS: Basophils # 0.1 K/mcL (0.0-0.2); Basophils % 1.1 %; Eosinophils # 0.4 K/mcL (0.0-0.6); Eosinophils % 4.4 %; Immature Granulocytes % 0.8 % (0-4); Lymphocytes # 1.4 K/mcL (0.6-4.6); Lymphocytes % 17.1 %; Mean Corpuscular HGB Conc 33.3 g/dL (31.6-35.5); Mean Corpuscular Hemoglobin 31.4 pg (28.0-33.3); Mean Corpuscular Volume 94.3 fL (83.0-100.0); Monocytes # 0.8 K/mcL (0.0-1.3); Monocytes % 9.4 %; Neutrophils # 5.6 K/mcL (1.6-8.9); Platelet Count 220 K/mcL (140-400); Red Blood Count 5.09 M/mcL (4.19-5.50); Red Cell Distribution Width 12.6 % (11.5-14.5); Segmented Neutrophils % 67.2 %; White Blood Count 8.4 K/mcL (4.3-11.1)
[2021-07-09 06:15] LABS: Calcium 9.7 mg/dL (8.6-10.3); Potassium 3.9 mEq/L (3.5-5.1)
[2021-07-09] MEDS: Tiotropium 10 INH DOSE IH SCH (07:47)
[2021-07-09] MEDS: Cholecalciferol (D-3) 1,000 UNIT (25MCG) TABLET PO SCH (07:50)
[2021-07-09] MEDS: Pyridoxine (B-6) 50 MG TABLET PO SCH (07:50)
[2021-07-09] MEDS: QUEtiapine Fumarate 25 MG TABLET PO SCH ×2 (07:50→17:52)
[2021-07-09] MEDS: amLODIPine 5 MG TABLET PO SCH (07:50)
[2021-07-09] MEDS: Loratadine 10 MG TABLET PO SCH (20:01)
[2021-07-10 04:48] LABS: BUN/Creatinine Ratio 19 (6-26); Blood Urea Nitrogen 26 mg/dL (8-23); Calcium 9.7 mg/dL (8.6-10.3); Carbon Dioxide 26 mEq/L (23-29); Chloride 106 mEq/L (98-107); Glucose 128 mg/dL (70-105); Osmolality,Calculated 296 (280-300); Potassium 3.8 mEq/L (3.5-5.1); Sodium 140 mEq/L (136-145); eGFR For African Americans > 60 (> 60); eGFR For Non-African Americans 50 (> 60)
[2021-07-10] MEDS: *HR* Enoxaparin 40 MG/0.4 ML SYRINGE SQ SCH (05:10)
[2021-07-10] MEDS: Tiotropium 10 INH DOSE IH SCH (08:01)
[2021-07-10] MEDS: amLODIPine 5 MG TABLET PO SCH (08:59)
[2021-07-10] MEDS: Cholecalciferol (D-3) 1,000 UNIT (25MCG) TABLET PO SCH (08:59)
[2021-07-10] MEDS: QUEtiapine Fumarate 25 MG TABLET PO SCH ×2 (08:59→18:55)
[2021-07-10] MEDS: Pyridoxine (B-6) 50 MG TABLET PO SCH (08:59)
[2021-07-10] MEDS: Loratadine 10 MG TABLET PO SCH (22:00)
[2021-07-11] MEDS: *HR* Enoxaparin 40 MG/0.4 ML SYRINGE SQ SCH (05:04)
[2021-07-11] MEDS: Tiotropium 10 INH DOSE IH SCH (08:12)
[2021-07-11] MEDS: amLODIPine 5 MG TABLET PO SCH (08:56)
[2021-07-11] MEDS: QUEtiapine Fumarate 25 MG TABLET PO SCH ×2 (08:56→17:56)
[2021-07-11] MEDS: Pyridoxine (B-6) 50 MG TABLET PO SCH (08:56)
[2021-07-11] MEDS: Cholecalciferol (D-3) 1,000 UNIT (25MCG) TABLET PO SCH (08:56)
[2021-07-11] MEDS: Loratadine 10 MG TABLET PO SCH (20:03)
[2021-07-12] MEDS: *HR* Enoxaparin 40 MG/0.4 ML SYRINGE SQ SCH (05:35)
[2021-07-12] MEDS: Tiotropium 10 INH DOSE IH SCH (07:26)
[2021-07-12] MEDS: Pyridoxine (B-6) 50 MG TABLET PO SCH (08:45)
[2021-07-12] MEDS: Cholecalciferol (D-3) 1,000 UNIT (25MCG) TABLET PO SCH (08:45)
[2021-07-12] MEDS: QUEtiapine Fumarate 25 MG TABLET PO SCH ×2 (08:46→17:49)
[2021-07-12] MEDS: amLODIPine 5 MG TABLET PO SCH (08:46)
[2021-07-12] MEDS: Loratadine 10 MG TABLET PO SCH (20:32)
[2021-07-13] MEDS: *HR* Enoxaparin 40 MG/0.4 ML SYRINGE SQ SCH (05:45)
[2021-07-13] MEDS: Tiotropium 10 INH DOSE IH SCH (08:05)
[2021-07-13] MEDS: Cholecalciferol (D-3) 1,000 UNIT (25MCG) TABLET PO SCH (08:08)
[2021-07-13] MEDS: QUEtiapine Fumarate 25 MG TABLET PO SCH ×2 (08:08→16:59)
[2021-07-13] MEDS: amLODIPine 5 MG TABLET PO SCH (08:08)
[2021-07-13] MEDS: Pyridoxine (B-6) 50 MG TABLET PO SCH (08:08)
[2021-07-13] MEDS: Loratadine 10 MG TABLET PO SCH (20:55)
[2021-07-14] MEDS: *HR* Enoxaparin 40 MG/0.4 ML SYRINGE SQ SCH (05:46)
[2021-07-14] MEDS: Pyridoxine (B-6) 50 MG TABLET PO SCH (08:03)
[2021-07-14] MEDS: QUEtiapine Fumarate 25 MG TABLET PO SCH ×2 (08:03→19:16)
[2021-07-14] MEDS: amLODIPine 5 MG TABLET PO SCH (08:04)
[2021-07-14] MEDS: Cholecalciferol (D-3) 1,000 UNIT (25MCG) TABLET PO SCH (08:04)
[2021-07-14 08:23] LABS: Basophils # 0.1 K/mcL (0.0-0.2); Basophils % 0.9 %; Eosinophils # 0.4 K/mcL (0.0-0.6); Eosinophils % 4.3 %; Hematocrit 49.4 % (37.5-50.1); Hemoglobin 16.5 g/dL (12.9-16.9); Immature Granulocytes % 0.2 % (0-4); Lymphocytes # 1.4 K/mcL (0.6-4.6); Lymphocytes % 16.6 %; Mean Corpuscular HGB Conc 33.4 g/dL (31.6-35.5); Mean Corpuscular Hemoglobin 31.4 pg (28.0-33.3); Mean Corpuscular Volume 94.1 fL (83.0-100.0); Mean Platelet Volume 10.4 fL (9.4-12.4); Monocytes # 0.7 K/mcL (0.0-1.3); Monocytes % 8.4 %; Neutrophils # 5.9 K/mcL (1.6-8.9); Platelet Count 202 K/mcL (140-400); Red Blood Count 5.25 M/mcL (4.19-5.50); Red Cell Distribution Width 12.8 % (11.5-14.5); Segmented Neutrophils % 69.6 %; White Blood Count 8.6 K/mcL (4.3-11.1)
[2021-07-14 08:49] LABS: BUN/Creatinine Ratio 17 (6-26); Blood Urea Nitrogen 23 mg/dL (8-23); Calcium 9.8 mg/dL (8.6-10.3); Carbon Dioxide 26 mEq/L (23-29); Chloride 106 mEq/L (98-107); Glucose 109 mg/dL (70-105); Osmolality,Calculated 296 (280-300); Potassium 3.9 mEq/L (3.5-5.1); Sodium 141 mEq/L (136-145); eGFR For African Americans > 60 (> 60); eGFR For Non-African Americans 50 (> 60)
[2021-07-14] MEDS: Tiotropium 10 INH DOSE IH SCH (09:10)
[2021-07-14] MEDS: Loratadine 10 MG TABLET PO SCH (19:16)
[2021-07-15] MEDS: *HR* Enoxaparin 40 MG/0.4 ML SYRINGE SQ SCH (05:30)
[2021-07-15] MEDS: amLODIPine 5 MG TABLET PO SCH (10:57)
[2021-07-15] MEDS: Cholecalciferol (D-3) 1,000 UNIT (25MCG) TABLET PO SCH (10:57)
[2021-07-15] MEDS: QUEtiapine Fumarate 25 MG TABLET PO SCH ×2 (10:57→20:02)
[2021-07-15] MEDS: Pyridoxine (B-6) 50 MG TABLET PO SCH (10:57)
[2021-07-15] MEDS: Tiotropium 10 INH DOSE IH SCH (11:23)
[2021-07-15] MEDS: Loratadine 10 MG TABLET PO SCH (20:02)
[2021-07-16] MEDS: *HR* Enoxaparin 40 MG/0.4 ML SYRINGE SQ SCH (05:39)
[2021-07-16] MEDS: QUEtiapine Fumarate 25 MG TABLET PO SCH ×2 (08:54→17:27)
[2021-07-16] MEDS: Pyridoxine (B-6) 50 MG TABLET PO SCH (08:54)
[2021-07-16] MEDS: amLODIPine 5 MG TABLET PO SCH (08:54)
[2021-07-16] MEDS: Cholecalciferol (D-3) 1,000 UNIT (25MCG) TABLET PO SCH (08:54)
[2021-07-16] MEDS: Tiotropium 10 INH DOSE IH SCH (10:46)
[2021-07-16] MEDS: Loratadine 10 MG TABLET PO SCH (21:04)
[2021-07-17] MEDS: *HR* Enoxaparin 40 MG/0.4 ML SYRINGE SQ SCH (05:25)
[2021-07-17] MEDS: Tiotropium 10 INH DOSE IH SCH (07:56)
[2021-07-17] MEDS: Cholecalciferol (D-3) 1,000 UNIT (25MCG) TABLET PO SCH (09:00)
[2021-07-17] MEDS: amLODIPine 5 MG TABLET PO SCH (09:00)
[2021-07-17] MEDS: Pyridoxine (B-6) 50 MG TABLET PO SCH (09:00)
[2021-07-17] MEDS: QUEtiapine Fumarate 25 MG TABLET PO SCH ×2 (09:00→17:14)
[2021-07-17 15:54] LABS: Adenovirus Not Detected (Not Detect); Bordetella Pertussis Not Detected (Not Detect); Chlamydophila pneumoniae Not Detected (Not Detect); Coronavirus 229E Not Detected (Not Detect); Coronavirus HKU1 Not Detected (Not Detect); Coronavirus NL63 Not Detected (Not Detect); Coronavirus OC43 Not Detected (Not Detect); Human Metapneumovirus Not Detected (Not Detect); Human Rhinovirus/Enterovirus Not Detected (Not Detect); Influenza A Subtype 2009 H1 Not Detected (Not Detect); Influenza B Not Detected (Not Detect); Mycoplasma pneumoniae Not Detected (Not Detect); Parainfluenza Virus 1 Not Detected (Not Detect); Parainfluenza Virus 2 Not Detected (Not Detect); Parainfluenza Virus 3 Not Detected (Not Detect); Parainfluenza Virus 4 Not Detected (Not Detect); Respiratory Syncytial Virus Not Detected (Not Detect); SARS-CoV-2 Not Detected (Not Detect)
[2021-07-17 19:14] VITALS: BP 115/85; PULSE 85; TEMP 97.6; O2SAT 94
[2021-07-17] MEDS: Loratadine 10 MG TABLET PO SCH (20:22)
== END 2021-07-17 20:28 | DRG 689 ==
LOC: 3ANU 10:27 → EMEROOARM 10:27 → SUATTDRO 16:09 → 3ANU 18:33 → SUATTDRO 07-11 18:15 → 3ANU 07-13 17:56
PROVIDERS: ADMIT Student in an Organized Health Care Education/Training Program; ATTEND Family Medicine

== ENCOUNTER 2021-08-04 14:05 | Inpatient (IN) ==
[2021-08-04 15:38] LABS: Basophils % 0.4 %; Eosinophils # 0.4 K/mcL (0.0-0.6); Eosinophils % 3.4 %; Immature Granulocytes % 0.3 % (0-4); Lymphocytes # 0.9 K/mcL (0.6-4.6); Lymphocytes % 8.2 %; Mean Corpuscular HGB Conc 33.3 g/dL (31.6-35.5); Mean Corpuscular Hemoglobin 30.5 pg (28.0-33.3); Mean Corpuscular Volume 91.6 fL (83.0-100.0); Mean Platelet Volume 10.2 fL (9.4-12.4); Monocytes # 1.1 K/mcL (0.0-1.3); Neutrophils # 8.4 K/mcL (1.6-8.9); Platelet Count 197 K/mcL (140-400); Red Blood Count 4.91 M/mcL (4.19-5.50); Red Cell Distribution Width 13.2 % (11.5-14.5); Segmented Neutrophils % 77.7 %; White Blood Count 10.8 K/mcL (4.3-11.1)
[2021-08-04 15:54] LABS: Calcium 8.9 mg/dL (8.6-10.3); Potassium 4.4 mEq/L (3.5-5.1)
[2021-08-04 16:13] LABS: Influenza A PCR Negative (Negative); Influenza B PCR Negative (Negative); Resp. Syncytial Virus PCR Negative (Negative)
[2021-08-04 16:28] LABS: SARS-CoV-2 by PCR (In House) Negative (Negative)
[2021-08-04] MEDS ORDERED: Naloxone 0.4 MG/ML INJ IVP PRN (17:40)
[2021-08-04] MEDS ORDERED: Melatonin 3 MG TABLET PO PRN (17:40)
[2021-08-04] MEDS ORDERED: Acetaminophen 325 MG TABLET PO PRN (17:40)
[2021-08-04] MEDS ORDERED: Mag Hydrox/Al Hydrox/Simeth 30 ML UDC PO PRN (17:40)
[2021-08-04] MEDS ORDERED: Artificial Tears SOLN 15 ML BOTTLE BOTH EYES PRN (17:45)
[2021-08-04] MEDS ORDERED: Albuterol 2.5 MG/3 ML NEBULIZER IH PRN (17:45)
[2021-08-04] MEDS: 0.9 % Sodium Chloride 1,000 ML IVC SCH (20:37)
[2021-08-04] MEDS: QUEtiapine Fumarate 25 MG TABLET PO SCH (22:23)
[2021-08-05 03:41] LABS: Calcium 8.3 mg/dL (8.6-10.3); Potassium 4.6 mEq/L (3.5-5.1)
[2021-08-05] MEDS: 0.9 % Sodium Chloride 1,000 ML IVC SCH (05:06)
[2021-08-05 06:03] LABS: Bilirubin,Urine Negative (Negative); Blood,Urine Negative (Negative); Clarity,Urine Clear (Clear); Color,Urine Yellow (Yellow); Glucose,Urine (UA) Normal (Normal); Ketones,Urine Trace mg/dL (Negative); Leukocyte Esterase,Urine Large (Negative); Mucus,Urine Few per lpf (None-Few); Nitrite,Urine Negative (Negative); PH,Urine 6.5 pH Units (5.0-8.0); Protein,Urine 50 mg/dL (Neg-Trace); Specific Gravity,Urine 1.016 (1.010-1.025); Urobilinogen,Urine Normal (Normal); WBC,Urine 50-100 per hpf (0-3)
[2021-08-05] MEDS: Multivit/Ca/Min/Fe/FA 1 TAB TABLET PO SCH (09:38)
[2021-08-05] MEDS: amLODIPine 5 MG TABLET PO SCH (09:38)
[2021-08-05] MEDS: Pyridoxine (B-6) 50 MG TABLET PO SCH (09:38)
[2021-08-05] MEDS: Cholecalciferol (D-3) 1,000 UNIT (25MCG) TABLET PO SCH (09:39)
[2021-08-05] MEDS: QUEtiapine Fumarate 25 MG TABLET PO SCH ×2 (09:39→16:24)
[2021-08-05] MEDS: Tiotropium 10 INH DOSE IH SCH (10:12)
[2021-08-05] MEDS ORDERED: cefTRIAXone 1,000 MG in 0.9 % Sodium Chloride Mini Bag 100 ML IVPB SCH (11:00)
[2021-08-06 01:53] LABS: Calcium 7.9 mg/dL (8.6-10.3); Potassium 4.6 mEq/L (3.5-5.1)
[2021-08-06] MEDS: Tiotropium 10 INH DOSE IH SCH (07:35)
[2021-08-06] MEDS: Cholecalciferol (D-3) 1,000 UNIT (25MCG) TABLET PO SCH (09:42)
[2021-08-06] MEDS: Pyridoxine (B-6) 50 MG TABLET PO SCH (09:43)
[2021-08-06] MEDS: amLODIPine 5 MG TABLET PO SCH (09:43)
[2021-08-06] MEDS: Amoxicillin/Clavulanate 500 MG TABLET PO SCH ×2 (09:43→16:33)
[2021-08-06] MEDS: Multivit/Ca/Min/Fe/FA 1 TAB TABLET PO SCH (09:43)
[2021-08-06] MEDS: QUEtiapine Fumarate 25 MG TABLET PO SCH ×2 (09:43→16:33)
[2021-08-06] MEDS: 0.9 % Sodium Chloride 1,000 ML IVC SCH ×2 (09:45→20:16)
[2021-08-07 03:21] LABS: Potassium 4.3 mEq/L (3.5-5.1)
[2021-08-07] MEDS: Cholecalciferol (D-3) 1,000 UNIT (25MCG) TABLET PO SCH (07:48)
[2021-08-07] MEDS: Amoxicillin/Clavulanate 500 MG TABLET PO SCH ×2 (07:48→17:56)
[2021-08-07] MEDS: Pyridoxine (B-6) 50 MG TABLET PO SCH (07:48)
[2021-08-07] MEDS: 0.9 % Sodium Chloride 1,000 ML IVC SCH ×2 (07:49→17:58)
[2021-08-07] MEDS: QUEtiapine Fumarate 25 MG TABLET PO SCH ×2 (07:49→17:56)
[2021-08-07] MEDS: amLODIPine 5 MG TABLET PO SCH (07:49)
[2021-08-07] MEDS: Multivit/Ca/Min/Fe/FA 1 TAB TABLET PO SCH (07:49)
[2021-08-07] MEDS: Tiotropium 10 INH DOSE IH SCH (10:32)
[2021-08-08 02:09] LABS: Calcium 8.3 mg/dL (8.6-10.3); Potassium 4.3 mEq/L (3.5-5.1)
[2021-08-08] MEDS: 0.9 % Sodium Chloride 1,000 ML IVC SCH (04:04)
[2021-08-08] MEDS: QUEtiapine Fumarate 25 MG TABLET PO SCH ×2 (07:52→16:39)
[2021-08-08] MEDS: Cholecalciferol (D-3) 1,000 UNIT (25MCG) TABLET PO SCH (07:52)
[2021-08-08] MEDS: amLODIPine 5 MG TABLET PO SCH (07:52)
[2021-08-08] MEDS: Pyridoxine (B-6) 50 MG TABLET PO SCH (07:52)
[2021-08-08] MEDS: Amoxicillin/Clavulanate 500 MG TABLET PO SCH ×2 (07:52→16:39)
[2021-08-08] MEDS: Multivit/Ca/Min/Fe/FA 1 TAB TABLET PO SCH (07:52)
[2021-08-08] MEDS: Tiotropium 10 INH DOSE IH SCH (10:57)
[2021-08-09 06:38] LABS: Calcium 8.5 mg/dL (8.6-10.3); Potassium 4.1 mEq/L (3.5-5.1)
[2021-08-09] MEDS: Tiotropium 10 INH DOSE IH SCH (07:51)
[2021-08-09] MEDS: Multivit/Ca/Min/Fe/FA 1 TAB TABLET PO SCH (08:05)
[2021-08-09] MEDS: Amoxicillin/Clavulanate 500 MG TABLET PO SCH ×2 (08:05→15:42)
[2021-08-09] MEDS: QUEtiapine Fumarate 25 MG TABLET PO SCH ×2 (08:05→15:42)
[2021-08-09] MEDS: Pyridoxine (B-6) 50 MG TABLET PO SCH (08:05)
[2021-08-09] MEDS: Cholecalciferol (D-3) 1,000 UNIT (25MCG) TABLET PO SCH (08:05)
[2021-08-09] MEDS: amLODIPine 5 MG TABLET PO SCH ×2 (08:06→09:38)
[2021-08-10 03:08] VITALS: O2SAT 96
[2021-08-10 07:32] VITALS: BP 163/95; PULSE 60; TEMP 97.5
[2021-08-10] MEDS: Amoxicillin/Clavulanate 500 MG TABLET PO SCH (07:39)
[2021-08-10] MEDS: Cholecalciferol (D-3) 1,000 UNIT (25MCG) TABLET PO SCH (07:39)
[2021-08-10] MEDS: Multivit/Ca/Min/Fe/FA 1 TAB TABLET PO SCH (07:39)
[2021-08-10] MEDS: amLODIPine 5 MG TABLET PO SCH (07:39)
[2021-08-10] MEDS: QUEtiapine Fumarate 25 MG TABLET PO SCH (07:40)
[2021-08-10] MEDS: Pyridoxine (B-6) 50 MG TABLET PO SCH (07:41)
[2021-08-10] MEDS: Tiotropium 10 INH DOSE IH SCH (08:12)
[2021-08-10 08:45] LABS: Calcium 8.9 mg/dL (8.6-10.3)
== END 2021-08-10 10:59 | disposition home health service (06) | DRG 683 ==
LOC: EMEROOARM 14:05 → 2ANU 14:05 → SUATTDRO 18:56 → 2ANU 19:43
PROVIDERS: ADMIT Internal Medicine; ATTEND Internal Medicine

== ENCOUNTER 2021-08-17 18:50 | Inpatient (IN) ==
[2021-08-17 22:26] LABS: Basophils # 0.1 K/mcL (0.0-0.2); Basophils % 0.4 %; Eosinophils # 0.1 K/mcL (0.0-0.6); Eosinophils % 0.6 %; Hematocrit 44.1 % (37.5-50.1); Hemoglobin 14.9 g/dL (12.9-16.9); Immature Granulocytes % 0.6 % (0-4); Lymphocytes # 0.8 K/mcL (0.6-4.6); Lymphocytes % 4.7 %; Mean Corpuscular HGB Conc 33.8 g/dL (31.6-35.5); Mean Corpuscular Hemoglobin 30.9 pg (28.0-33.3); Mean Corpuscular Volume 91.5 fL (83.0-100.0); Mean Platelet Volume 9.9 fL (9.4-12.4); Monocytes # 1.1 K/mcL (0.0-1.3); Monocytes % 7.1 %; Neutrophils # 13.9 K/mcL (1.6-8.9); Platelet Count 289 K/mcL (140-400); Red Blood Count 4.82 M/mcL (4.19-5.50); Red Cell Distribution Width 13.8 % (11.5-14.5); Segmented Neutrophils % 86.6 %
[2021-08-17] MEDS ORDERED: Isovue-370 500 ML BOTTLE IVP ONE (22:45)
[2021-08-17 22:47] LABS: Albumin 3.6 g/dL (3.5-5.7); Albumin/Globulin Ratio 0.9 (1.1-2.2); Bilirubin,Total 0.7 mg/dL (0.3-1.0); Calcium 8.9 mg/dL (8.6-10.3); Globulin 3.9 g/dL (2.4-3.5); Potassium 4.4 mEq/L (3.5-5.1); Total Protein 7.5 g/dL (6.4-8.9)
[2021-08-17] MEDS ORDERED: 0.9 % Sodium Chloride 1,000 ML IV ONE (22:51)
[2021-08-17 23:34] LABS: Bilirubin,Urine Negative (Negative); Blood,Urine Trace (Negative); Clarity,Urine Clear (Clear); Color,Urine Light-Yellow (Yellow); Glucose,Urine (UA) Normal (Normal); Hyaline Casts,Urine Few per lpf (None Seen); Ketones,Urine 10 mg/dL (Negative); Leukocyte Esterase,Urine Large (Negative); Nitrite,Urine Negative (Negative); PH,Urine 5.5 pH Units (5.0-8.0); Protein,Urine 70 mg/dL (Neg-Trace); Specific Gravity,Urine 1.015 (1.010-1.025); Urobilinogen,Urine Normal (Normal); WBC,Urine 30-50 per hpf (0-3)
[2021-08-17 23:37] LABS: VBG HCO3 19 mEq/L (21-27); VBG PCO2 36 mmHg (41-51); VBG PH 7.34 pH Units (7.32-7.42); VBG PO2 37 mmHg (25-50)
[2021-08-18] MEDS ORDERED: cefTRIAXone 1,000 MG in Water for inj. (sterile) 10 ML IVP ONE (00:34)
[2021-08-18] MEDS ORDERED: Ondansetron 4 MG/2 ML VIAL IVP PRN (01:34)
[2021-08-18] MEDS ORDERED: Naloxone 0.4 MG/ML INJ IVP PRN (01:34)
[2021-08-18] MEDS ORDERED: 0.9 % Sodium Chloride 1,000 ML IVC SCH (01:45)
[2021-08-18 05:16] LABS: Sodium, Urine 45.2 mEq/L
[2021-08-18 06:49] LABS: Hematocrit 39.4 % (37.5-50.1); Mean Corpuscular Hemoglobin 30.4 pg (28.0-33.3); Mean Corpuscular Volume 92.1 fL (83.0-100.0); Mean Platelet Volume 9.8 fL (9.4-12.4); Platelet Count 254 K/mcL (140-400); Red Blood Count 4.28 M/mcL (4.19-5.50); Red Cell Distribution Width 13.7 % (11.5-14.5); White Blood Count 9.9 K/mcL (4.3-11.1)
[2021-08-18 07:11] LABS: Calcium 8.2 mg/dL (8.6-10.3)
[2021-08-18] MEDS: Sennosides 8.6 MG TABLET PO SCH (08:03)
[2021-08-18] MEDS ORDERED: cefTRIAXone 1,000 MG in 0.9 % Sodium Chloride Mini Bag 100 ML IVPB SCH (18:00)
[2021-08-19 04:57] LABS: Basophils % 0.2 %; Eosinophils # 0.4 K/mcL (0.0-0.6); Eosinophils % 2.9 %; Hematocrit 36.6 % (37.5-50.1); Immature Granulocytes % 0.5 % (0-4); Lymphocytes # 1.2 K/mcL (0.6-4.6); Lymphocytes % 8.8 %; Mean Corpuscular HGB Conc 32.8 g/dL (31.6-35.5); Mean Corpuscular Hemoglobin 30.3 pg (28.0-33.3); Mean Corpuscular Volume 92.4 fL (83.0-100.0); Mean Platelet Volume 10.4 fL (9.4-12.4); Monocytes % 7.9 %; Neutrophils # 10.6 K/mcL (1.6-8.9); Platelet Count 261 K/mcL (140-400); Red Blood Count 3.96 M/mcL (4.19-5.50); Red Cell Distribution Width 13.6 % (11.5-14.5); Segmented Neutrophils % 79.7 %; White Blood Count 13.2 K/mcL (4.3-11.1)
[2021-08-19 05:15] LABS: Calcium 7.9 mg/dL (8.6-10.3); Potassium 3.9 mEq/L (3.5-5.1)
[2021-08-19 08:47] LABS: Protein/Creatinine Ratio,Urine 0.76 mg/mg (0.00-0.20)
[2021-08-19] MEDS: Sennosides 8.6 MG TABLET PO SCH (09:05)
[2021-08-19] MEDS: 0.9 % Sodium Chloride 1,000 ML IVC SCH (09:06)
[2021-08-19] MEDS: calcitrioL 0.25 MCG CAPSULE PO SCH (14:52)
[2021-08-19] MEDS: polyethylene glycoL 3350 17 GM POWD.PACK PO PRN (15:01)
[2021-08-19] MEDS ORDERED: Albuterol 2.5 MG/3 ML NEBULIZER IH PRN (15:37)
[2021-08-19] MEDS: QUEtiapine Fumarate 25 MG TABLET PO SCH (18:14)
[2021-08-20 04:56] LABS: Basophils % 0.3 %; Eosinophils # 0.4 K/mcL (0.0-0.6); Eosinophils % 3.3 %; Hematocrit 37.1 % (37.5-50.1); Hemoglobin 12.4 g/dL (12.9-16.9); Immature Granulocytes % 0.5 % (0-4); Lymphocytes # 1.4 K/mcL (0.6-4.6); Mean Corpuscular HGB Conc 33.4 g/dL (31.6-35.5); Mean Corpuscular Hemoglobin 30.8 pg (28.0-33.3); Mean Corpuscular Volume 92.1 fL (83.0-100.0); Mean Platelet Volume 10.1 fL (9.4-12.4); Neutrophils # 9.9 K/mcL (1.6-8.9); Platelet Count 259 K/mcL (140-400); Red Blood Count 4.03 M/mcL (4.19-5.50); Red Cell Distribution Width 13.6 % (11.5-14.5); Segmented Neutrophils % 76.9 %; White Blood Count 12.8 K/mcL (4.3-11.1)
[2021-08-20 05:12] LABS: Calcium 8.3 mg/dL (8.6-10.3); Potassium 4.1 mEq/L (3.5-5.1)
[2021-08-20] MEDS: 0.9 % Sodium Chloride 1,000 ML IVC SCH ×2 (06:07→18:29)
[2021-08-20] MEDS: amLODIPine 5 MG TABLET PO SCH (08:01)
[2021-08-20] MEDS: Sennosides 8.6 MG TABLET PO SCH (08:01)
[2021-08-20] MEDS: QUEtiapine Fumarate 25 MG TABLET PO SCH ×2 (08:01→18:28)
[2021-08-20] MEDS: polyethylene glycoL 3350 17 GM POWD.PACK PO PRN (08:01)
[2021-08-20] MEDS: calcitrioL 0.25 MCG CAPSULE PO SCH (08:01)
[2021-08-20] MEDS: Fluticasone Propionate Nasal 50 MCG/SPRAY BOTTLE NS SCH (11:32)
[2021-08-21 01:53] LABS: Basophils # 0.1 K/mcL (0.0-0.2); Basophils % 0.5 %; Eosinophils # 0.4 K/mcL (0.0-0.6); Eosinophils % 3.3 %; Hematocrit 36.3 % (37.5-50.1); Hemoglobin 11.6 g/dL (12.9-16.9); Immature Granulocytes % 0.7 % (0-4); Lymphocytes # 1.4 K/mcL (0.6-4.6); Lymphocytes % 12.1 %; Mean Corpuscular Volume 93.8 fL (83.0-100.0); Mean Platelet Volume 10.1 fL (9.4-12.4); Monocytes % 8.1 %; Neutrophils # 8.9 K/mcL (1.6-8.9); Platelet Count 225 K/mcL (140-400); Red Blood Count 3.87 M/mcL (4.19-5.50); Red Cell Distribution Width 13.7 % (11.5-14.5); Segmented Neutrophils % 75.3 %; White Blood Count 11.8 K/mcL (4.3-11.1)
[2021-08-21 02:14] LABS: Calcium 7.7 mg/dL (8.6-10.3); Potassium 4.1 mEq/L (3.5-5.1)
[2021-08-21 05:31] LABS: Lambda Qnt Free Light Chains 71.67 mg/L (5.71-26.30)
[2021-08-21] MEDS: 0.9 % Sodium Chloride 1,000 ML IVC SCH ×2 (07:33→08:26)
[2021-08-21] MEDS: amLODIPine 5 MG TABLET PO SCH (08:15)
[2021-08-21] MEDS: Fluticasone Propionate Nasal 50 MCG/SPRAY BOTTLE NS SCH (08:26)
[2021-08-21] MEDS: Sennosides 8.6 MG TABLET PO SCH (08:27)
[2021-08-21] MEDS: calcitrioL 0.25 MCG CAPSULE PO SCH (08:27)
[2021-08-21] MEDS: QUEtiapine Fumarate 25 MG TABLET PO SCH ×2 (08:27→17:34)
[2021-08-21] MEDS: Ringers Solution, Lactated 1,000 ML IVC SCH (11:39)
[2021-08-21 12:38] LABS: ANA IgG by ELISA NONE DETECTED (None Detected)
[2021-08-21 12:48] LABS: Kappa Qnt Free Light Chains 130.34 mg/L (3.30-19.40)
[2021-08-21] MEDS: polyethylene glycoL 3350 17 GM POWD.PACK PO PRN (20:04)
[2021-08-22] MEDS: Ringers Solution, Lactated 1,000 ML IVC SCH ×2 (00:07→17:04)
[2021-08-22 07:01] LABS: Basophils # 0.1 K/mcL (0.0-0.2); Basophils % 0.5 %; Eosinophils # 0.4 K/mcL (0.0-0.6); Eosinophils % 3.1 %; Hematocrit 36.9 % (37.5-50.1); Hemoglobin 12.1 g/dL (12.9-16.9); Immature Granulocytes % 0.6 % (0-4); Lymphocytes # 1.2 K/mcL (0.6-4.6); Lymphocytes % 10.6 %; Mean Corpuscular HGB Conc 32.8 g/dL (31.6-35.5); Mean Corpuscular Hemoglobin 30.5 pg (28.0-33.3); Mean Corpuscular Volume 92.9 fL (83.0-100.0); Monocytes # 0.8 K/mcL (0.0-1.3); Monocytes % 7.2 %; Neutrophils # 9.1 K/mcL (1.6-8.9); Platelet Count 217 K/mcL (140-400); Red Blood Count 3.97 M/mcL (4.19-5.50); Red Cell Distribution Width 13.7 % (11.5-14.5); White Blood Count 11.7 K/mcL (4.3-11.1)
[2021-08-22 07:43] LABS: Calcium 8.1 mg/dL (8.6-10.3)
[2021-08-22] MEDS: calcitrioL 0.25 MCG CAPSULE PO SCH (08:13)
[2021-08-22] MEDS: Fluticasone Propionate Nasal 50 MCG/SPRAY BOTTLE NS SCH (08:13)
[2021-08-22] MEDS: Sennosides 8.6 MG TABLET PO SCH (08:13)
[2021-08-22] MEDS: QUEtiapine Fumarate 25 MG TABLET PO SCH ×2 (08:13→17:04)
[2021-08-22] MEDS ORDERED: amLODIPine 5 MG TABLET PO SCH (09:00)
[2021-08-22 19:55] LABS: Bacteria,Urine Few per hpf (None-Few); Bilirubin,Urine Negative (Negative); Blood,Urine Small (Negative); Clarity,Urine Clear (Clear); Color,Urine Light-Yellow (Yellow); Glucose,Urine (UA) 300 mg/dL (Normal); Ketones,Urine Negative (Negative); Leukocyte Esterase,Urine Trace (Negative); Mucus,Urine Few per lpf (None-Few); Nitrite,Urine Negative (Negative); PH,Urine 5.5 pH Units (5.0-8.0); Protein,Urine 30 mg/dL (Neg-Trace); RBC,Urine 15-30 per hpf (0-3); Specific Gravity,Urine 1.015 (1.010-1.025); Squamous Epithelial Cell,Urine Few per hpf (None-Few); Urobilinogen,Urine Normal (Normal)
[2021-08-23] MEDS: Ringers Solution, Lactated 1,000 ML IVC SCH (04:14)
[2021-08-23 06:14] LABS: Basophils # 0.1 K/mcL (0.0-0.2); Basophils % 0.4 %; Eosinophils # 0.3 K/mcL (0.0-0.6); Eosinophils % 2.3 %; Hematocrit 38.3 % (37.5-50.1); Hemoglobin 12.4 g/dL (12.9-16.9); Immature Granulocytes % 0.6 % (0-4); Lymphocytes # 1.5 K/mcL (0.6-4.6); Lymphocytes % 10.8 %; Mean Corpuscular HGB Conc 32.4 g/dL (31.6-35.5); Mean Corpuscular Hemoglobin 30.1 pg (28.0-33.3); Mean Platelet Volume 9.6 fL (9.4-12.4); Monocytes % 7.1 %; Neutrophils # 11.2 K/mcL (1.6-8.9); Platelet Count 229 K/mcL (140-400); Red Blood Count 4.12 M/mcL (4.19-5.50); Red Cell Distribution Width 14.1 % (11.5-14.5); Segmented Neutrophils % 78.8 %; White Blood Count 14.2 K/mcL (4.3-11.1)
[2021-08-23 06:33] LABS: Calcium 8.3 mg/dL (8.6-10.3); Potassium 3.8 mEq/L (3.5-5.1)
[2021-08-23] MEDS: Sennosides 8.6 MG TABLET PO SCH (08:34)
[2021-08-23] MEDS: calcitrioL 0.25 MCG CAPSULE PO SCH (08:35)
[2021-08-23] MEDS: QUEtiapine Fumarate 25 MG TABLET PO SCH ×2 (08:35→16:59)
[2021-08-23] MEDS: cefTRIAXone 1,000 MG in 0.9 % Sodium Chloride Mini Bag 100 ML IVPB SCH (08:35)
[2021-08-23] MEDS: 0.9 % Sodium Chloride 1,000 ML IVC SCH (08:36)
[2021-08-23] MEDS: Fluticasone Propionate Nasal 50 MCG/SPRAY BOTTLE NS SCH (08:37)
[2021-08-23] MEDS ORDERED: polyethylene glycoL 3350 17 GM POWD.PACK PO ONE (11:48)
[2021-08-23] MEDS: hydrALAZINE 25 MG TABLET PO SCH (20:37)
[2021-08-24] MEDS: 0.9 % Sodium Chloride 1,000 ML IVC SCH ×2 (04:39→09:09)
[2021-08-24 08:46] LABS: ANCA IFA Titer <1:20 (<1:20)
[2021-08-24 08:47] LABS: Alpha 2 Globulin (PEP) 0.99 g/dL (0.48-1.05)
[2021-08-24] MEDS: cefTRIAXone 1,000 MG in 0.9 % Sodium Chloride Mini Bag 100 ML IVPB SCH (08:58)
[2021-08-24] MEDS: hydrALAZINE 25 MG TABLET PO SCH ×3 (08:59→19:35)
[2021-08-24] MEDS: QUEtiapine Fumarate 25 MG TABLET PO SCH ×2 (08:59→15:45)
[2021-08-24] MEDS: Sennosides 8.6 MG TABLET PO SCH (08:59)
[2021-08-24] MEDS: calcitrioL 0.25 MCG CAPSULE PO SCH (08:59)
[2021-08-24] MEDS: Fluticasone Propionate Nasal 50 MCG/SPRAY BOTTLE NS SCH (08:59)
[2021-08-24 10:06] LABS: IFE Reflexed NOT DONE
[2021-08-24 10:08] LABS: ANCA IFA Pattern NONE DETECTED (None Detected); Serine Protease-3 Antibody 4 AU/mL (0-19)
[2021-08-24 11:35] LABS: Basophils % 0.3 %; Eosinophils # 0.3 K/mcL (0.0-0.6); Eosinophils % 2.7 %; Hematocrit 38.7 % (37.5-50.1); Hemoglobin 12.7 g/dL (12.9-16.9); Immature Granulocytes % 0.7 % (0-4); Lymphocytes # 1.3 K/mcL (0.6-4.6); Lymphocytes % 10.8 %; Mean Corpuscular HGB Conc 32.8 g/dL (31.6-35.5); Mean Corpuscular Hemoglobin 30.5 pg (28.0-33.3); Mean Platelet Volume 10.1 fL (9.4-12.4); Monocytes # 0.9 K/mcL (0.0-1.3); Monocytes % 7.4 %; Neutrophils # 9.4 K/mcL (1.6-8.9); Platelet Count 252 K/mcL (140-400); Red Blood Count 4.16 M/mcL (4.19-5.50); Red Cell Distribution Width 14.1 % (11.5-14.5); Segmented Neutrophils % 78.1 %
[2021-08-24 11:49] LABS: Calcium 8.5 mg/dL (8.6-10.3); Potassium 3.6 mEq/L (3.5-5.1)
[2021-08-25 03:41] LABS: Basophils # 0.1 K/mcL (0.0-0.2); Basophils % 0.7 %; Eosinophils # 0.4 K/mcL (0.0-0.6); Eosinophils % 4.3 %; Hematocrit 34.5 % (37.5-50.1); Hemoglobin 11.5 g/dL (12.9-16.9); Immature Granulocytes % 0.9 % (0-4); Lymphocytes # 1.5 K/mcL (0.6-4.6); Lymphocytes % 15.3 %; Mean Corpuscular HGB Conc 33.3 g/dL (31.6-35.5); Mean Corpuscular Hemoglobin 31.3 pg (28.0-33.3); Mean Corpuscular Volume 93.8 fL (83.0-100.0); Mean Platelet Volume 10.2 fL (9.4-12.4); Monocytes # 0.9 K/mcL (0.0-1.3); Monocytes % 8.9 %; Platelet Count 238 K/mcL (140-400); Red Blood Count 3.68 M/mcL (4.19-5.50); Red Cell Distribution Width 14.3 % (11.5-14.5); Segmented Neutrophils % 69.9 %; White Blood Count 9.9 K/mcL (4.3-11.1)
[2021-08-25 04:00] LABS: Calcium 8.2 mg/dL (8.6-10.3); Potassium 3.7 mEq/L (3.5-5.1)
[2021-08-25 06:27] VITALS: BP 165/84; PULSE 76; TEMP 97.4; O2SAT 95
[2021-08-25] MEDS: QUEtiapine Fumarate 25 MG TABLET PO SCH (08:39)
[2021-08-25] MEDS: Sennosides 8.6 MG TABLET PO SCH (08:39)
[2021-08-25] MEDS: hydrALAZINE 25 MG TABLET PO SCH (08:39)
[2021-08-25] MEDS: calcitrioL 0.25 MCG CAPSULE PO SCH (08:39)
[2021-08-25] MEDS: Fluticasone Propionate Nasal 50 MCG/SPRAY BOTTLE NS SCH (08:40)
[2021-08-25] MEDS ORDERED: Cefdinir 300 MG CAPSULE PO SCH (09:00)
== END 2021-08-25 09:37 | disposition home health service (06) | DRG 683 ==
LOC: EMEROOARM 18:50 → 2ANU 18:50 → SUATTDRO 08-18 01:29 → 2ANU 08-18 02:25 → SUATTDRO 08-18 12:23 → 2ANU 08-18 16:25
PROVIDERS: ADMIT Internal Medicine; ATTEND Internal Medicine